=== PATIENT | female | born 1990 | race Caucasian/White ===

== ENCOUNTER 2016-08-10 11:46 | Emergency (ER) | payer OTHER ==
[2016-08-10 12:03] VITALS: BP 102/54; PULSE 92; TEMP 98.7; BMI 37.6
[2016-08-10] MEDS ORDERED: KETOROLAC TROMETHAMINE 60 MG/2 ML VIAL IM ONE (12:25)
[2016-08-10] MEDS ORDERED: CYCLOBENZAPRINE HCL 10 MG TABLET (FP) PO ONE (12:25)
[2016-08-10] MEDS ORDERED: KETOROLAC TROMETHAMINE 60 MG/2 ML VIAL ONE (12:27)
[2016-08-10] MEDS ORDERED: CYCLOBENZAPRINE HCL 10 MG TABLET (FP) ONE (12:27)
--- NOTE | 2016-08-10 12:34 | PDOC ---
History of Present Illness - General Chief Complaint: Injury Stated Complaint: FALL/ BRUISED HANDS, NECK PAIN Time Seen by Provider: 08/10/16 12:07 History Source: Patient Exam Limitations: No Limitations - History of Present Illness Initial Comments: 08/10/16 12:26 Status post slip and fall down stairs landing on her buttocks and incurring multiple contusions and twisting injuries. Patient is here now with complaints of severe neck pain to the left side of her neck musculature. Denies numbness or tingling to hand, denies any true head injury 08/10/16 12:42 08/10/16 20:52 Occurred: reports: other (2 days ) Severity: reports: mild Pain Location: reports: none Method of Injury: Yes: fall Modifying Factors: improves with: None Loss of Consciousness: no loss of consciousness Associated Symptoms (Fall): denies symptoms Past History - Travel Traveled outside of the country in the last 30 days: No Close contact w/someone who was outside of country & ill: No - Past Medical History Allergies/Adverse Reactions: Allergies Allergy/AdvReac Type Severity Reaction Status Date / Time doxycycline Allergy vomiting Verified 08/10/16 11:55 abd pain Penicillins Allergy Verified 08/10/16 11:55 Home Medications: Ambulatory Orders Bupropion HCl [Wellbutrin Sr] 150 mg PO DAILY 08/10/16 Clonazepam [Klonopin] 1 mg PO BID 08/10/16 Cyclobenzaprine HCl 10 mg PO Q8H PRN #15 tablet 08/10/16 Suicide Attempt (Hx): No Other medical history: denies - Psycho/Social/Smoking Cessation Hx Anxiety: No Suicidal Ideation: No Smoking Status: Yes Smoking History: Current every day smoker Have you smoked in the past 12 months: Yes Number of Cigarettes Smoked Daily: 5 Information on smoking cessation initiated: Yes 'Breaking Loose' booklet given: 04/24/16 Hx Alcohol Use: No Drug/Substance Use Hx: No Substance Use Type: None Trauma Specific PMHX - Complaint Specific PMHX Back Injury: No Neck Injury: No Review of Systems - Review of Systems Able to Perform ROS?: Yes Is the patient limited [place]awk proficient: Yes Constitutional: Yes: See HPI. No: Chills, Fever, Malaise HEENTM: Yes: See HPI. No: Symptoms Reported Respiratory: Yes: See HPI. No: Symptoms reported Musculoskeletal: Yes: Symptoms Reported, See HPI, Neck Pain, Joint Stiffness ( to left aspect upper neck) Integumentary: Yes: Symptoms Reported, See HPI, Bruising (multiple areas ) Neurological: Yes: See HPI. No: Symptoms reported, Headache, Numbness, Paresthesia All Other Systems: Reviewed and Negative *Physical Exam - Vital Signs Last Vital Signs Temp Pulse Resp BP Pulse Ox 98.7 F 92 H 14 102/54 99 08/10/16 11:56 08/10/16 11:56 08/10/16 11:56 08/10/16 11:56 08/10/16 11:56 - Physical Exam General Appearance: Yes: Nourished, Appropriately Dressed, Apparent Distress, Mild Distress, Moderate Distress HEENT: positive: FRANK, Normal ENT Inspection, Normal Voice, TMs Normal, Pharynx Normal Neck: positive: Tender, Supple, Other (with cording and mild spasm noted to the left sternocleidomastoid at bifurcation of muscle and its attachments to both occiput and upper back and clavicle area. Reproduced tenderness with wraparound scalp tenderness with outpatient to that muscle belly. Has no spine/C-spine tenderness crepitus or step-offs. And range of motion is intact.) Respiratory/Chest: positive: Lungs Clear, Normal Breath Sounds. negative: Chest Tender Gastrointestinal/Abdominal: positive: Normal Bowel Sounds, Soft. negative: Tender Extremity: positive: Normal Capillary Refill, Normal Inspection, Normal Range of Motion Integumentary: positive: Normal Color, Dry, Warm, Pale, Bruising (multiple bruises noted to legs, hip, and elbow in various stages of healing. No bone tenderness or deformity noted) Neurologic: positive: shipping and receiving assistant II-XII NML intact, Fully Oriented, Alert, Normal Mood/ Affect, Normal Response, Motor Strength 5/5 Progress Note - Progress Note Progress Note: Status post fall with cervical strain/spasm. Will treat with NSAIDs and cyclobenzaprine *DC/Admit/Observation/Transfer Diagnosis at time of Disposition: Whiplash injury syndrome Qualifiers: Encounter type: initial encounter Qualified Code(s): S13.4XXA - Sprain of ligaments of cervical spine, initial encounter - Discharge Dispostion Disposition: HOME Condition at time of disposition: Stable Admit: No - Prescriptions Prescriptions: Cyclobenzaprine HCl 10 mg PO Q8H PRN #15 tablet PRN Reason: spasm - Patient Instructions Printed Discharge Instructions: DI for Cervical Muscle Strain Additional Instructions: Rest, no heavy lifting or exercise until pain is resolved Hot soaks to neck and low back as often as possible/hot showers or Jacuzzis No massage or therapy until spasm is gone Continue ibuprofen 2-200 mg tablets every 6 hours for the next 3 days then as needed for pain and swelling Cyclobenzaprine 1-10mg every 8 hours as needed for spasm If not significant improvement within 24 hours with medication and rest regime, followup with private physician for change in medications and /or therapy.
== END 2016-08-10 12:44 | disposition home or self-care (01) ==
LOC: JER 11:46
PROC: 3E0233Z Introduction of Anti-inflammatory into Muscle, Percutaneous Approach (ICD-10-PCS; principal; 2016-08-10)
DX: S13.4XXA Sprain of ligaments of cervical spine, initial encounter (principal); W10.8XXA Fall (on) (from) other stairs and steps, initial encounter; Y93.89 Activity, other specified; Y92.89 Other specified places as the place of occurrence of the external cause; Y99.8 Other external cause status
CPT/HCPCS: 99281-25

== ENCOUNTER 2017-01-19 20:36 | Emergency (ER) | payer OTHER ==
[2017-01-19 20:51] VITALS: BP 129/74; PULSE 97; TEMP 98; BMI 38.9
--- NOTE | 2017-01-19 21:46 | PDOC ---
History of Present Illness - General Chief Complaint: Pain Stated Complaint: SORE THROAT/EAR PAIN Time Seen by Provider: 01/19/17 20:57 History Source: Patient Exam Limitations: No Limitations - History of Present Illness Initial Comments: 01/19/17 21:43 26-year-old female presents to the ED with worsening sore throat for the past 2 days worsening in severity. Patient states difficulty swallowing but denies fever, chills, headache, vomiting, or decreased appetite. Severity: reports: mild Possible Cause: Yes: no prior episodes Associated Symptoms: reports: sore throat Past History - Past Medical History Allergies/Adverse Reactions: Allergies Allergy/AdvReac Type Severity Reaction Status Date / Time doxycycline Allergy vomiting Verified 01/19/17 20:47 abd pain Penicillins Allergy Verified 01/19/17 20:47 Home Medications: Ambulatory Orders Bupropion HCl [Wellbutrin Sr] 150 mg PO DAILY 08/10/16 Clonazepam [Klonopin] 1 mg PO BID 08/10/16 Cyclobenzaprine HCl 10 mg PO Q8H PRN #15 tablet 08/10/16 Fluoxetine HCl [Prozac -] 20 mg PO DAILY 01/19/17 Trazodone HCl 100 mg PO ASDIR 01/19/17 Psychiatric Problems: Yes (Depression, anxiety) Suicide Attempt (Hx): No - Psycho/Social/Smoking Cessation Hx Anxiety: No Suicidal Ideation: No Smoking Status: Yes Smoking History: Current every day smoker Have you smoked in the past 12 months: Yes Number of Cigarettes Smoked Daily: 4 Information on smoking cessation initiated: No 'Breaking Loose' booklet given: 04/24/16 Hx Alcohol Use: No Drug/Substance Use Hx: No Substance Use Type: None Patient Lives Alone: No Lives with/in: spouse/SO Review of Systems - Review of Systems Able to Perform ROS?: Yes Constitutional: No: Symptoms Reported HEENTM: Yes: Throat Pain, Difficulty Swallowing Respiratory: No: Cough Cardiac (ROS): No: Symptoms Reported ABD/GI: No: Symptoms Reported Musculoskeletal: No: Symptoms Reported Integumentary: No: Symptoms Reported Neurological: No: Symptoms reported *Physical Exam - Vital Signs Last Vital Signs Temp Pulse Resp BP Pulse Ox 98.0 F 97 H 20 129/74 98 01/19/17 20:48 01/19/17 20:48 01/19/17 20:48 01/19/17 20:48 01/19/17 20:48 - Physical Exam General Appearance: Yes: Nourished, Appropriately Dressed. No: Apparent Distress HEENT: positive: Tonsillar Erythema (3+ bilateral with exudate. Uvula midline) Neck: positive: Lymphadenopathy (R) (pper cervical), Lymphadenopathy (L) (upper cervical) Respiratory/Chest: positive: Lungs Clear, Normal Breath Sounds. negative: Respiratory Distress, Accessory Muscle Use Cardiovascular: positive: Regular Rhythm, Regular Rate. negative: Murmur Integumentary: positive: Normal Color, Warm, Moist Neurologic: positive: Motor Strength 5/5 (ambulatory) Medical Decision Making - Medical Decision Making 01/19/17 21:46 Patient with a sore throat and difficulty swallowing worsening since yesterday. Patient ordered for rapid strep based on clinical exam including Motrin. 01/19/17 21:53 Rapid strep negative. Patient will be treated based on clinical exam. *DC/Admit/Observation/Transfer Diagnosis at time of Disposition: Strep throat, Strep throat - Discharge Dispostion Disposition: HOME Condition at time of disposition: Good - Patient Instructions Printed Discharge Instructions: DI for Strep Throat Additional Instructions: Please take medication as prescribed until completed. Please take Motrin 600 mg every 8 hours discomfort. Please use spray as recommended.
[2017-01-19] MEDS ORDERED: IBUPROFEN 600 MG TABLET (FP) PO ONE ×2 (21:47→21:53)
[2017-01-19] MEDS ORDERED: DEXAMETHASONE LIQUID 0.5 MG/5 ML 240 ML BULK BOTTLE PO ONE (21:57)
[2017-01-19] MEDS ORDERED: DEXAMETHASONE SOD PHOSPHATE 10 MG/1 ML VIAL ONE (21:58)
== END 2017-01-19 22:21 | disposition home or self-care (01) ==
LOC: JERFT 20:36
DX: J02.0 Streptococcal pharyngitis (principal); F41.8 Other specified anxiety disorders; F17.210 Nicotine dependence, cigarettes, uncomplicated
CPT/HCPCS: 84703; 87070; 87430; 99281-25

== ENCOUNTER 2018-01-12 12:39 | Emergency (ER) | payer OTHER ==
[2018-01-12 12:56] VITALS: BP 150/54; PULSE 89; TEMP 98.3; BMI 42.0
[2018-01-12] MEDS ORDERED: KETOROLAC TROMETHAMINE 60 MG/2 ML VIAL IM ONE (13:14)
[2018-01-12] MEDS ORDERED: KETOROLAC TROMETHAMINE 60 MG/2 ML VIAL ONE (13:15)
--- NOTE | 2018-01-12 13:27 | PDOC ---
History of Present Illness - General Chief Complaint: Back Pain Stated Complaint: FALL, BACK PAIN Time Seen by Provider: 01/12/18 13:07 History Source: Patient Exam Limitations: Clinical Condition - History of Present Illness Initial Comments: 01/12/18 13:20 Patient presenting with complain of lower back pain after falling while playing karate with the child. Patient reports she jumped to give a kick and she fell on her back hitting her back hard. pt report she had to stay on the floor for 15mins after the fall because she couldnt get up due to pain and took 800mg motrin which helped relieved the pain to come to ED. Denies pain radiating , paresthesia, numbness or tingling sensation. Denies hitting head or LOC Timing/Duration: 1 hour Severity: moderate Past History - Past Medical History Allergies/Adverse Reactions: Allergies Allergy/AdvReac Type Severity Reaction Status Date / Time doxycycline Allergy vomiting Verified 05/05/17 09:39 abd pain Home Medications: Ambulatory Orders Bupropion HCl [Wellbutrin Sr] 150 mg PO DAILY 08/10/16 Clonazepam [Klonopin] 1 mg PO BID 08/10/16 Fluoxetine HCl [Prozac -] 20 mg PO DAILY 01/19/17 Back Brace [Ultra Support] 1 each MC DAILY #1 each 01/12/18 Methocarbamol [Robaxin -] 500 mg PO TID PRN #21 tablet 01/12/18 Naproxen 500 mg PO BID PRN #20 tablet. 01/12/18 COPD: No Psychiatric Problems: Yes (Depression, anxiety) - Suicide/Smoking/Psychosocial Hx Smoking Status: Yes Smoking History: Former smoker Have you smoked in the past 12 months: Yes Number of Cigarettes Smoked Daily: 5 If you are a former smoker, when did you quit?: 1 month Information on smoking cessation initiated: No 'Breaking Loose' booklet given: 05/05/17 Hx Alcohol Use: Yes (socially) Drug/Substance Use Hx: No Substance Use Type: None Review of Systems - Review of Systems Able to Perform ROS?: Yes Is the patient limited [place] proficient: No Constitutional: No: Chills, Diaphoresis, Fever, Loss of Appetite, Malaise, Night Sweats, Weakness, Weight Stable, Unintentional Wgt. Loss, Unexplained wgt Loss, Other HEENTM: No: Eye Pain, Blurred Vision, Tearing, Recent change in vision, Double Vision, Cataracts, Ear Pain, Ocular Prothesis, Ear Discharge, Nose Pain, Nose Congestion, Tinnitus, Nose Bleeding, Hearing Loss, Throat Pain, Throat Swelling , Mouth Pain, Dental Problems, Difficulty Swallowing, Mouth Swelling, Other Respiratory: No: Cough, Orthopnea, Shortness of Breath, SOB with Exertion, SOB at Rest, Stridor, Wheezing, Productive cough, Hemoptysis, Other Cardiac (ROS): No: Chest Pain, Edema, Irregular Heart Rate, Lightheadedness, Palpitations, Syncope, Chest Tightness, Other ABD/GI: No: Abdominal Distended, Abd. Pain w/ defecation, Blood Streaked Bowels , Constipated, Diarrhea, Difficulty Swallowing, Nausea, Poor Appetite, Poor Fluid Intake, Rectal Bleeding, Vomiting, Indigestion, Abdominal cramping, Tarry Stools, Other : No: Incontinence Musculoskeletal: Yes: See HPI, Back Pain, Muscle Pain (Lower back). No: Gout, Joint Pain, Joint Swelling, Muscle Weakness, Neck Pain, Joint Stiffness, Other Neurological: No: Symptoms reported, See HPI, Headache, Numbness, Paresthesia, Pre-Existing Deficit, Seizure, Tingling, Tremors, Weakness, Unsteady Gait, Ataxia, Dizziness, Other All Other Systems: Reviewed and Negative *Physical Exam - Vital Signs Last Vital Signs Temp Pulse Resp BP Pulse Ox 98.3 F 89 20 150/54 97 01/12/18 12:48 01/12/18 12:48 01/12/18 12:48 01/12/18 12:48 01/12/18 12:48 - Physical Exam Comments: 01/12/18 13:28 GENERAL: Well developed, well nourished. Awake and alert. No acute distress. HEENT: Normocephalic, atraumatic. PERRLA, EOMI. No conjunctival pallor. Sclera are non- icteric. Moist mucous membranes. Oropharynx is clear. NECK: Supple. Full ROM. No JVD. Carotid pulses 2+ and symmetric, without bruits. No thyromegaly. No lymphadenopathy. CARDIOVASCULAR: Regular rate and rhythm. No murmurs, rubs, or gallops. Distal pulses are 2+ and symmetric. PULMONARY: No evidence of respiratory distress. Lungs clear to auscultation bilaterally. No wheezing, rales or rhonchi. ABDOMINAL: Soft. Non-tender. Non-distended. No rebound or guarding. No organomegaly. Normoactive bowel sounds. MUSCULOSKELETAL : mild tenderness to b/l paravertebral muscle of L4-S1 and spine of S1 Normal range of motion at all joints. No bony deformities . No CVA tenderness. EXTREMITIES: No cyanosis. No clubbing. No edema. No calf tenderness. SKIN: Warm and dry. Normal capillary refill. No rashes. No jaundice. NEUROLOGICAL: Alert, awake, appropriate. Cranial nerves 2-12 intact. No deficits to light touch and temperature in face, upper extremities and lower extremities. No motor deficits in the in face, upper extremities and lower extremities. Normoreflexic in the upper and lower extremities. Normal speech. Toes are down- going bilaterally. Gait is normal without ataxia. PSYCHIATRIC: Cooperative. Good eye contact. Appropriate mood and affect. General Appearance: Yes: Nourished, Appropriately Dressed, Mild Distress ED Treatment Course - RADIOLOGY Radiology Studies Ordered: Category Date Time Status SPINE-LUMBAR SACRAL [RAD] Stat Radiology 01/12/18 13:14 Ordered Medical Decision Making - Medical Decision Making 01/12/18 13:29 Patient presenting with complain of lower back pain after fall hitting the back which has improved with Motrin. Mild tenderness to lower back on exam free range of motion of lower back. Negative sciatica on exam. Toradol 60 mg IM ordered for pain and x-ray of lumbosacral ordered. Treat based on imaging results 01/12/18 14:05 No evidence of spine fracture or dislocation on x-ray of lumbosacral. she will be discharged home on NSAIDs and muscle relaxer with orthopedics follow-up *DC/Admit/Observation/Transfer Diagnosis at time of Disposition: Back muscle spasm Lumbago Qualifiers: Chronicity: acute Back pain laterality: bilateral Sciatica presence: without sciatica Qualified Code(s): M54.5 - Low back pain - Discharge Dispostion Disposition: HOME Condition at time of disposition: Stable Decision to Admit order: No - Prescriptions Prescriptions: Back Brace [Ultra Support] 1 each MC DAILY #1 each Methocarbamol [Robaxin -] 500 mg PO TID PRN #21 tablet PRN Reason: Back Pain Naproxen 500 mg PO BID PRN #20 tablet.dr PRN Reason: Back Pain - Referrals Referrals: Emil,Man M, MD [Staff Physician] - - Patient Instructions Printed Discharge Instructions: Back Pain (Alternative Therapy), DI for Low Back Pain Additional Instructions: Take prescribed medication as needed for pain. Wear a back brace until the symptoms resolved. Apply heat therapy to lower back 2-3 times a day for 5-10 minutes. Follow-up with orthopedics is persistent pain after 5 days - Post Discharge Activity
== END 2018-01-12 14:20 | disposition home or self-care (01) ==
LOC: JER 12:39 → JERFT 12:39
PROC: 3E0233Z Introduction of Anti-inflammatory into Muscle, Percutaneous Approach (ICD-10-PCS; principal; 2018-01-12)
DX: M62.830 Muscle spasm of back (principal); W18.39XA Other fall on same level, initial encounter; Y93.75 Activity, martial arts; Y92.9 Unspecified place or not applicable; Z87.891 Personal history of nicotine dependence; F41.8 Other specified anxiety disorders
CPT/HCPCS: 72100-TC-FY; 96372; 99281-25

== ENCOUNTER 2018-11-30 12:48 | Emergency (ER) | payer OTHER | END 2018-11-30 14:01 | disposition home or self-care (01) | LOC: JERFT 12:48 ==

== ENCOUNTER 2020-10-04 12:43 | Emergency (ER) | payer OTHER ==
[2020-10-04 12:52] VITALS: BP 136/86; PULSE 72; TEMP 97; BMI 43.9
[2020-10-04] MEDS ORDERED: METHOCARBAMOL 500 MG TABLET PO ONE (13:06)
[2020-10-04] MEDS ORDERED: LIDOCAINE 5% TOPICAL PATCH TP ONE (13:08)
[2020-10-04] MEDS ORDERED: KETOROLAC TROMETHAMINE 60 MG/2 ML VIAL IM ONE (13:08)
[2020-10-04] MEDS ORDERED: KETOROLAC TROMETHAMINE 30 MG/1 ML VIAL ONE (13:12)
[2020-10-04] MEDS ORDERED: METHOCARBAMOL 500 MG TABLET ONE (13:12)
[2020-10-04] MEDS ORDERED: LIDOCAINE 5% TOPICAL PATCH ONE (13:12)
== END 2020-10-04 13:48 | disposition home or self-care (01) ==
LOC: JERFT 12:43
PROC: 3E0233Z Introduction of Anti-inflammatory into Muscle, Percutaneous Approach (ICD-10-PCS; principal; 2020-10-04)
DX: M54.42 Lumbago with sciatica, left side (principal)
CPT/HCPCS: 72100-TC-FY; 99284-25

== ENCOUNTER 2021-08-10 19:11 | Emergency (ER) | payer OTHER ==
[2021-08-10 19:38] VITALS: BP 144/95; PULSE 88; TEMP 98.2; BMI 46.0
== END 2021-08-10 21:10 | disposition left against medical advice (07) ==
LOC: JER 19:11
DX: R07.9 Chest pain, unspecified (principal)
CPT/HCPCS: 93005; 93010; 99283-25